=== PATIENT | female | born 1970 | race African-American/Black ===

== ENCOUNTER 2017-04-10 15:17 | Inpatient (IN) | payer OTHER ==
[~2017-04-10] VITALS: Ht 157.5 cm; Wt 62.1 kg
[~2017-04-10 15:17] MED LIST: ACAM333T7 PO; ASEN10TA9 SL; ASPI-630 PO; GABA-585 PO; HALO1TAB PO; LEVE10007 PO; LORA10TA3 PO; MIRT30TA3 PO; PANT20TA3 PO
[2017-04-10 17:00] VITALS: BP 115/88
[2017-04-10] MEDS ORDERED: NICOTINE POLACRILEX 2MG GUM PACKAGE of 12. BC PRN (17:30)
[2017-04-10] MEDS: IV NORMAL SALINE 1000ML BAG 1,000 ML IV SCH (17:30)
[2017-04-10] MEDS ORDERED: ZOLPIDEM 5 MG TABLET. PO PRN (17:30)
[2017-04-10] MEDS ORDERED: NICOTINE 21MG PATCH. TD PRN (17:30)
[2017-04-10] MEDS: LORazepam 1 MG TABLET PO SCH (18:05)
[2017-04-10] MEDS: MULTIVIT INFUSN,ADULT 4,VIT K 10 ML, THIAMINE 100 MG, FOLIC ACID 1 MG in IV NORMAL SALI... IV SCH (18:05)
[2017-04-10 19:53] VITALS: BP 97/67
[2017-04-10] MEDS: PANTOPRAZOLE 40 MG TABLET.DR. PO SCH (21:00)
--- NOTE | 2017-04-10 21:52 | PDOC1 ---
History and Physical Date of Admission Date of Admission DATE: 04/10/17 TIME: 21:46 Identification/Chief Complaint Chief Complaint has vomited blood Problems: Source Source: Chart review, Patient History of Present Illness History of Present Illness pt transferred from [facility], reported at ER to be vomiting a small amount of blood daily. ER physician reported daily vomiting of tablespoon size, Ms. Teague reports vomiting blood one time days ago, but she appears disheveled and confused, has asterixis and some nystagmus, slow to respond Past Medical History Cardiovascular: No pertinent hx GI: No pertinent hx Psych: Anxiety, Addictions Family History Family History: Family History Unknown Social History Smoke: 1 pack per day ALCOHOL: heavy Drugs: Other Current Medications Current Medications Current Medications Multivitamins 10 ml/Thiamine HCl 100 mg/Folic Acid 1 mg/Sodium Chloride 1,011.2 ml @ 100 mls/ hr DAILY IV Last administered on 04/10/17 18:05; Start at 18:00; Stop 04/16/17 at 17:59 Lorazepam (Ativan) 1 mg Q6HRS PO Last administered on 04/10/17 18:05; Start at 18:00 Lorazepam (Ativan) 2 mg PRN Q1HR PRN IV For CIWA 8-14; Start 04/10/17 at 17:30 Lorazepam (Ativan) 4 mg PRN Q1HR PRN IV For CIWA 15 or greater Last administered on 04/10/17 21:37; Start 04/10/17 at 17:30 Pantoprazole Sodium (Protonix) 40 mg BIDAC PO ; Start 04/10/17 at 21:00 Nicotine (Nicoderm Cq 21mg) 1 patch PRN DAILY PRN TD SMOKING CESSATION; Start 04/10/17 at 17:30 Nicotine Polacrilex (Nicorette Gum) 1 each PRN Q1HR PRN BC SMOKING CESSATION; Start 04/10/17 at 17:30 Zolpidem Tartrate (Ambien) 5 mg PRN QHS PRN PO INSOMNIA; Start 04/10/17 at 17: 30 Sodium Chloride 1,000 ml @ 100 mls/hr Q10H IV ; Start 04/10/17 at 17:30 Active Scripts Active Reported Saphris (Asenapine Maleate) 10 Mg Tab.subl 1 Tab SL QHS Mirtazapine 30 Mg Tablet 1 Tab PO QHS Haloperidol 1 Mg Tablet 1 Mg PO BID Acamprosate Calcium 333 Mg Tablet.dr 333 Mg PO TID Pantoprazole Sodium 20 Mg Tablet.dr 20 Mg PO DAILY Levetiracetam 1,000 Mg Tablet 1,000 Mg PO BID Gabapentin 100 Mg Capsule 1 Cap PO QID Loratadine 10 Mg Tablet 1 Tab PO DAILY Aspirin 81 Mg Tab.chew 1 Tab PO DAILY Allergies Allergies: Coded Allergies: No Known Drug Allergies (Unverified , 02/14/15) ROS Review of System difficult to obtain, pt slow to respond to most questions General: YES: Fatigue, Malaise PSYCHOLOGICAL ROS: YES: Anxiety, Irritablity HEENT: No: Heacaches, Visual Changes, Hearing change, Nasal congestion, Nasal discharge, Oral lesions, Sinus pain, Sore Throat, Epistaxis, Sneezing, Snoring, Tinnitus, Vertigo, Vocal changes, Other Respiratory: YES: Cough Cardiovascular: yes Lt Headedness, No Chest Pain, No Palpitations, No Orthopnea Gastrointestinal: Yes Nausea, Yes Abdominal Pain, Yes Other (small emesis, bloody) Genitourinary: No Dysuria, No Frequency, No Incontinence, No , No , No , No , No , No , No Musculoskeletal: Yes Joint Pain, Yes Joint Stiffness Neurological: Yes Tremors, Yes Weakness, No Behavorial Changes, No Bowel/Bladder ControlChng, No Confusion, No Dizziness, No Gait Disturbance, No Visual Changes, No Other Skin: Yes Dry Skin Physical Exam Physical Exam lethargic, some confused General: Alert, Cooperative, No acute distress, Other (oriented 3.4) HEENT: Atraumatic, EOMI Lungs: Clear to auscultation, Normal air movement Heart: no gallops, no murmurs Abdomen: Normal bowel sounds, Soft Extremities: No clubbing, No edema, Normal pulses Neuro: Normal tone, Sensation intact Psych/Mental Status: Mood NL, Other (malordorous, disheveled) Vitals Vitals Vital Signs Date Time Temp Pulse Resp B/P (MAP) Pulse Ox O2 Delivery O2 Flow Rate FiO2 04/10/17 19:53 98.2 88 18 97/67 (77) 93 Room Air 98.2 VTE Prophylaxis Ordered VTE Prophylaxis Devices: Yes VTE Pharmacological Prophylaxi: Contraindicated Assessment/Plan Assessment/Plan min. hematemesis, with min blood loss, no anemia reported at [facility] EtOH abuse, appears dependence, check urine for tox toxic encephalopathy, EtOH withdrawl prev. and treatment ordered tobaccoism, patch and gum orthostatic hypotension, give IV fluid, recheck, appears dry admit, GI consult PPI check labs in AM FRANK HALL MD Apr 10, 2017 21:52
[2017-04-10 23:06] VITALS: BP 97/73
[2017-04-11] VITALS (14 sets, daily range): BP systolic 98–171; BP diastolic 67–84
[2017-04-11] MEDS: IV NORMAL SALINE 1000ML BAG 1,000 ML IV SCH (04:30)
[2017-04-11] MEDS: LORazepam 1 MG TABLET PO SCH ×4 (06:00→17:30)
[2017-04-11 08:04] LABS: BASO # 0.1 x10^3/uL (0.0-0.2); BASO % 1 % (0-3); EOS % 4 % (0-3); HEMATOCRIT 31.1 % (36.0-47.0); HEMOGLOBIN 10.5 g/dL (12.0-15.5); LYMPH # 1.8 x10^3/uL (1.0-4.8); LYMPH % 28 % (24-48); MEAN CORPUSCULAR HEMOGLOBIN 34 pg (25-35); MEAN CORPUSCULAR HGB CONC 34 g/dL (31-37); MEAN CORPUSCULAR VOLUME 101 fL (79-100); MONO % 10 % (0-9); NEUT % 57 % (31-73); PLATELET COUNT 244 x10^3/uL (140-400); RED CELL DISTRIBUTION WIDTH 15.1 % (11.5-14.5); WHITE BLOOD COUNT 6.4 x10^3/uL (4.0-11.0)
[2017-04-11 08:05] LABS: BARBITURATES NEG (NEG); BENZODIAZEPINES POS (NEG); CANNABINOIDS POS (NEG); COCAINE NEG (NEG); METHADONE NEG (NEG); OPIATES NEG (NEG); PHENCYCLIDINE NEG (NEG)
[2017-04-11 08:15] LABS: ALBUMIN 2.4 g/dL (3.4-5.0); ALBUMIN/GLOBULIN RATIO 0.5 (1.0-1.7); CALCIUM 7.5 mg/dL (8.5-10.1); CREATININE 0.5 mg/dL (0.6-1.0); POTASSIUM 3.3 mmol/L (3.5-5.1); TOTAL BILIRUBIN 1.3 mg/dL (0.2-1.0); TOTAL PROTEIN 7.2 g/dL (6.4-8.2)
[2017-04-11] MEDS: MULTIVIT INFUSN,ADULT 4,VIT K 10 ML, THIAMINE 100 MG, FOLIC ACID 1 MG in IV NORMAL SALI... IV SCH (08:51)
[2017-04-11] MEDS: PANTOPRAZOLE 40 MG TABLET.DR. PO SCH ×2 (08:51→16:30)
--- NOTE | 2017-04-11 09:52 | PDOC2 ---
GI CONSULT Reason For Consult: GI Bleed, elevated LFTs HPI: HPI: 46 y/o female, poor historian, transferred from [facility]. Records indicate daily hematemesis x 2 weeks, she tells me "once a long time ago." Takes "a whole lot of pills," unsure if NSAIDs or anything for GERD. Denies abd pain, weight loss , diarrhea, constipation, hematochezia, melena. Drinks 1/2 pint whiskey most days, last two days ago. Want to leave to smoke. Labs at [facility]: Na+ 132, K+ 3, normal BUN/Cr, bili 1.4, AST 151, ALT 80, Alk Phos 244, Hgb 11, elevated RDW, plt WNL, INR 1.2. Recheck of labs here as below, Hgb 10.5. Some hypotension noted. PMH: PMH: bipolar, depression, alcoholism, seizures, ?hepatomegaly, tonsillectomy, lumpectomy, hysterectomy FH: Family History: No pertinent hx Social History: Smoke: 1 pack per day ALCOHOL: heavy (1/2 whiskey daily) Drugs: Marijuana ROS: GEN: Denies fevers, chills, sweats HEENT: Denies blurred vision, sore throat CV: Denies chest pain RESP: Denies shortness of air, cough GI: Per HPI : Denies hematuria, dysuria ENDO: Denies weight changes NEURO: Denies confusion, dizziness MSK: Denies weakness, joint pain/swelling SKIN: Denies jaundice, pruritus Vitals: Vitals: Vital Signs Date Time Temp Pulse Resp B/P (MAP) Pulse Ox O2 Delivery O2 Flow Rate FiO2 04/11/17 07:00 98.0 101 18 110/84 (93) 98 Room Air 98.0 Labs: Labs: Laboratory Tests Test 04/11/17 06:30 04/11/17 07:53 Urine Opiates Screen Neg (NEG) Urine Methadone Screen Neg (NEG) Urine Barbiturates Neg (NEG) Urine Phencyclidine Screen Neg (NEG) Urine Amphetamine/Methamphetamine Neg (NEG) Urine Benzodiazepines Screen Pos (NEG) Urine Cocaine Screen Neg (NEG) Urine Cannabinoids Screen Pos (NEG) Urine Ethyl Alcohol Neg (NEG) White Blood Count 6.4 x10^3/uL (4.0-11.0) Red Blood Count 3.10 x10^6/uL (3.50-5.40) Hemoglobin 10.5 g/dL (12.0-15.5) Hematocrit 31.1 % (36.0-47.0) Mean Corpuscular Volume 101 fL (79-100) Mean Corpuscular Hemoglobin 34 pg (25-35) Mean Corpuscular Hemoglobin Concent 34 g/dL (31-37) Red Cell Distribution Width 15.1 % (11.5-14.5) Platelet Count 244 x10^3/uL (140-400) Neutrophils (%) (Auto) 57 % (31-73) Lymphocytes (%) (Auto) 28 % (24-48) Monocytes (%) (Auto) 10 % (0-9) Eosinophils (%) (Auto) 4 % (0-3) Basophils (%) (Auto) 1 % (0-3) Neutrophils # (Auto) 3.7 x10^3uL (1.8-7.7) Lymphocytes # (Auto) 1.8 x10^3/uL (1.0-4.8) Monocytes # (Auto) 0.7 x10^3/uL (0.0-1.1) Eosinophils # (Auto) 0.3 x10^3/uL (0.0-0.7) Basophils # (Auto) 0.1 x10^3/uL (0.0-0.2) Sodium Level 133 mmol/L (136-145) Potassium Level 3.3 mmol/L (3.5-5.1) Chloride Level 99 mmol/L (98-107) Carbon Dioxide Level 22 mmol/L (21-32) Anion Gap 12 (6-14) Blood Urea Nitrogen 6 mg/dL (7-20) Creatinine 0.5 mg/dL (0.6-1.0) Estimated GFR (Cockcroft-Gault) 160.0 BUN/Creatinine Ratio 12 (6-20) Glucose Level 82 mg/dL (70-99) Calcium Level 7.5 mg/dL (8.5-10.1) Total Bilirubin 1.3 mg/dL (0.2-1.0) Aspartate Amino Transf (AST/SGOT) 122 U/L (15-37) Alanine Aminotransferase (ALT/SGPT) 65 U/L (14-59) Alkaline Phosphatase 214 U/L (46-116) Total Protein 7.2 g/dL (6.4-8.2) Albumin 2.4 g/dL (3.4-5.0) Albumin/Globulin Ratio 0.5 (1.0-1.7) Thyroid Stimulating Hormone (TSH) 1.741 uIU/mL (0.358-3.74) Allergies: Coded Allergies: No Known Drug Allergies (Unverified , 02/14/15) Medications: Current Medications Medications (Trade) Dose Ordered Sig/Marcela Route PRN Reason Start Time Stop Time Status Last Admin Dose Admin Multivitamins 10 ml/Thiamine HCl 100 mg/Folic Acid 1 mg/Sodium Chloride 1,011.2 ml @ 100 mls/ hr DAILY IV 04/10/17 18:00 04/16/17 17:59 04/11/17 08:51 Lorazepam (Ativan) 1 mg Q6HRS PO 04/10/17 18:00 04/10/17 18:05 Lorazepam (Ativan) 2 mg PRN Q1HR PRN IV For CIWA 8-14 04/10/17 17:30 04/11/17 06:25 Lorazepam (Ativan) 4 mg PRN Q1HR PRN IV For CIWA 15 or greater 04/10/17 17:30 04/10/17 21:37 Pantoprazole Sodium (Protonix) 40 mg BIDAC PO 04/10/17 21:00 04/11/17 08:51 Sodium Chloride 1,000 ml @ 100 mls/hr Q10H IV 04/10/17 17:30 04/11/17 04:30 Imaging: Imaging: - PE: GEN: NAD HEENT: +nystagmus LUNGS: CTAB anteriorly HEART: tachycardic ABD: NABS, S/ND/NT EXTREMITY: No edema SKIN: No rashes, no jaundice NEURO/PSYCH: A & O 3 A/P: A/P: Hematemesis Alcoholism Elevated LFTs -- NPO for EGD this afternoon. She is agreeable. Was given PPI PO this morning. LFTs likely 2/2 alcohol, will check Hep panel and iron profile. SONIA BRANDT Apr 11, 2017 09:52
[2017-04-11] MEDS ORDERED: IV RINGERS,LACTATED 1000ML 1,000 ML IV SCH (10:54)
[2017-04-11] MEDS: POTASSIUM CHLORIDE 10MEQ 100 ML IV SCH ×2 (12:40→20:02)
--- NOTE | 2017-04-11 13:46 | PDOC ---
PROGRESS NOTES Chief Complaint Chief Complaint min. hematemesis, with min blood loss anemia EtOH abuse, appears dependence, withdrawl treatment and precautions, toxic encephalopathy, EtOH withdrawl tobaccoism, patch and gum orthostatic hypotension, better with IV fluid, dehydrateed History of Present Illness History of Present Illness EGD today cont IV ativan and PO sched boyfriend, Kade at bedside, helpful with asking her to continue medical therapy. She would prefer to leave, but still has asterixis, tremor, nystagmus Vitals Vitals Vital Signs Date Time Temp Pulse Resp B/P (MAP) Pulse Ox O2 Delivery O2 Flow Rate FiO2 04/11/17 11:00 98.0 101 18 98/75 (83) 98 Room Air 98.0 Physical Exam Physical Exam neuro global deficit, asterixis, nystagmus, no focal General: Alert, Cooperative, No acute distress, Other (oriented 3.4) Heart: Regular rate, No murmurs Lungs: Clear Abdomen: Normal bowel sounds, Soft Extremities: No clubbing, No edema, Normal pulses Skin: No rashes Labs LABS Laboratory Tests Test 04/11/17 06:30 04/11/17 07:53 Urine Opiates Screen Neg (NEG) Urine Methadone Screen Neg (NEG) Urine Barbiturates Neg (NEG) Urine Phencyclidine Screen Neg (NEG) Urine Amphetamine/Methamphetamine Neg (NEG) Urine Benzodiazepines Screen Pos (NEG) Urine Cocaine Screen Neg (NEG) Urine Cannabinoids Screen Pos (NEG) Urine Ethyl Alcohol Neg (NEG) White Blood Count 6.4 x10^3/uL (4.0-11.0) Red Blood Count 3.10 x10^6/uL (3.50-5.40) Hemoglobin 10.5 g/dL (12.0-15.5) Hematocrit 31.1 % (36.0-47.0) Mean Corpuscular Volume 101 fL (79-100) Mean Corpuscular Hemoglobin 34 pg (25-35) Mean Corpuscular Hemoglobin Concent 34 g/dL (31-37) Red Cell Distribution Width 15.1 % (11.5-14.5) Platelet Count 244 x10^3/uL (140-400) Neutrophils (%) (Auto) 57 % (31-73) Lymphocytes (%) (Auto) 28 % (24-48) Monocytes (%) (Auto) 10 % (0-9) Eosinophils (%) (Auto) 4 % (0-3) Basophils (%) (Auto) 1 % (0-3) Neutrophils # (Auto) 3.7 x10^3uL (1.8-7.7) Lymphocytes # (Auto) 1.8 x10^3/uL (1.0-4.8) Monocytes # (Auto) 0.7 x10^3/uL (0.0-1.1) Eosinophils # (Auto) 0.3 x10^3/uL (0.0-0.7) Basophils # (Auto) 0.1 x10^3/uL (0.0-0.2) Sodium Level 133 mmol/L (136-145) Potassium Level 3.3 mmol/L (3.5-5.1) Chloride Level 99 mmol/L (98-107) Carbon Dioxide Level 22 mmol/L (21-32) Anion Gap 12 (6-14) Blood Urea Nitrogen 6 mg/dL (7-20) Creatinine 0.5 mg/dL (0.6-1.0) Estimated GFR (Cockcroft-Gault) 160.0 BUN/Creatinine Ratio 12 (6-20) Glucose Level 82 mg/dL (70-99) Calcium Level 7.5 mg/dL (8.5-10.1) Total Bilirubin 1.3 mg/dL (0.2-1.0) Aspartate Amino Transf (AST/SGOT) 122 U/L (15-37) Alanine Aminotransferase (ALT/SGPT) 65 U/L (14-59) Alkaline Phosphatase 214 U/L (46-116) Total Protein 7.2 g/dL (6.4-8.2) Albumin 2.4 g/dL (3.4-5.0) Albumin/Globulin Ratio 0.5 (1.0-1.7) Thyroid Stimulating Hormone (TSH) 1.741 uIU/mL (0.358-3.74) Review of Systems Review of Systems agitation, does not want to stay would not complete ROS Comment Review of Relevant I have reviewed the following items kai (where applicable) has been applied. Labs Laboratory Tests Test 04/11/17 06:30 04/11/17 07:53 Urine Opiates Screen Neg (NEG) Urine Methadone Screen Neg (NEG) Urine Barbiturates Neg (NEG) Urine Phencyclidine Screen Neg (NEG) Urine Amphetamine/Methamphetamine Neg (NEG) Urine Benzodiazepines Screen Pos (NEG) Urine Cocaine Screen Neg (NEG) Urine Cannabinoids Screen Pos (NEG) Urine Ethyl Alcohol Neg (NEG) White Blood Count 6.4 x10^3/uL (4.0-11.0) Red Blood Count 3.10 x10^6/uL (3.50-5.40) Hemoglobin 10.5 g/dL (12.0-15.5) Hematocrit 31.1 % (36.0-47.0) Mean Corpuscular Volume 101 fL (79-100) Mean Corpuscular Hemoglobin 34 pg (25-35) Mean Corpuscular Hemoglobin Concent 34 g/dL (31-37) Red Cell Distribution Width 15.1 % (11.5-14.5) Platelet Count 244 x10^3/uL (140-400) Neutrophils (%) (Auto) 57 % (31-73) Lymphocytes (%) (Auto) 28 % (24-48) Monocytes (%) (Auto) 10 % (0-9) Eosinophils (%) (Auto) 4 % (0-3) Basophils (%) (Auto) 1 % (0-3) Neutrophils # (Auto) 3.7 x10^3uL (1.8-7.7) Lymphocytes # (Auto) 1.8 x10^3/uL (1.0-4.8) Monocytes # (Auto) 0.7 x10^3/uL (0.0-1.1) Eosinophils # (Auto) 0.3 x10^3/uL (0.0-0.7) Basophils # (Auto) 0.1 x10^3/uL (0.0-0.2) Sodium Level 133 mmol/L (136-145) Potassium Level 3.3 mmol/L (3.5-5.1) Chloride Level 99 mmol/L (98-107) Carbon Dioxide Level 22 mmol/L (21-32) Anion Gap 12 (6-14) Blood Urea Nitrogen 6 mg/dL (7-20) Creatinine 0.5 mg/dL (0.6-1.0) Estimated GFR (Cockcroft-Gault) 160.0 BUN/Creatinine Ratio 12 (6-20) Glucose Level 82 mg/dL (70-99) Calcium Level 7.5 mg/dL (8.5-10.1) Total Bilirubin 1.3 mg/dL (0.2-1.0) Aspartate Amino Transf (AST/SGOT) 122 U/L (15-37) Alanine Aminotransferase (ALT/SGPT) 65 U/L (14-59) Alkaline Phosphatase 214 U/L (46-116) Total Protein 7.2 g/dL (6.4-8.2) Albumin 2.4 g/dL (3.4-5.0) Albumin/Globulin Ratio 0.5 (1.0-1.7) Thyroid Stimulating Hormone (TSH) 1.741 uIU/mL (0.358-3.74) Laboratory Tests Test 04/11/17 06:30 04/11/17 07:53 Urine Opiates Screen Neg (NEG) Urine Methadone Screen Neg (NEG) Urine Barbiturates Neg (NEG) Urine Phencyclidine Screen Neg (NEG) Urine Amphetamine/Methamphetamine Neg (NEG) Urine Benzodiazepines Screen Pos (NEG) Urine Cocaine Screen Neg (NEG) Urine Cannabinoids Screen Pos (NEG) Urine Ethyl Alcohol Neg (NEG) White Blood Count 6.4 x10^3/uL (4.0-11.0) Red Blood Count 3.10 x10^6/uL (3.50-5.40) Hemoglobin 10.5 g/dL (12.0-15.5) Hematocrit 31.1 % (36.0-47.0) Mean Corpuscular Volume 101 fL (79-100) Mean Corpuscular Hemoglobin 34 pg (25-35) Mean Corpuscular Hemoglobin Concent 34 g/dL (31-37) Red Cell Distribution Width 15.1 % (11.5-14.5) Platelet Count 244 x10^3/uL (140-400) Neutrophils (%) (Auto) 57 % (31-73) Lymphocytes (%) (Auto) 28 % (24-48) Monocytes (%) (Auto) 10 % (0-9) Eosinophils (%) (Auto) 4 % (0-3) Basophils (%) (Auto) 1 % (0-3) Neutrophils # (Auto) 3.7 x10^3uL (1.8-7.7) Lymphocytes # (Auto) 1.8 x10^3/uL (1.0-4.8) Monocytes # (Auto) 0.7 x10^3/uL (0.0-1.1) Eosinophils # (Auto) 0.3 x10^3/uL (0.0-0.7) Basophils # (Auto) 0.1 x10^3/uL (0.0-0.2) Sodium Level 133 mmol/L (136-145) Potassium Level 3.3 mmol/L (3.5-5.1) Chloride Level 99 mmol/L (98-107) Carbon Dioxide Level 22 mmol/L (21-32) Anion Gap 12 (6-14) Blood Urea Nitrogen 6 mg/dL (7-20) Creatinine 0.5 mg/dL (0.6-1.0) Estimated GFR (Cockcroft-Gault) 160.0 BUN/Creatinine Ratio 12 (6-20) Glucose Level 82 mg/dL (70-99) Calcium Level 7.5 mg/dL (8.5-10.1) Total Bilirubin 1.3 mg/dL (0.2-1.0) Aspartate Amino Transf (AST/SGOT) 122 U/L (15-37) Alanine Aminotransferase (ALT/SGPT) 65 U/L (14-59) Alkaline Phosphatase 214 U/L (46-116) Total Protein 7.2 g/dL (6.4-8.2) Albumin 2.4 g/dL (3.4-5.0) Albumin/Globulin Ratio 0.5 (1.0-1.7) Thyroid Stimulating Hormone (TSH) 1.741 uIU/mL (0.358-3.74) Medications Current Medications Multivitamins 10 ml/Thiamine HCl 100 mg/Folic Acid 1 mg/Sodium Chloride 1,011.2 ml @ 100 mls/ hr DAILY IV Last administered on 04/11/17 08:51; Start at 18:00; Stop 04/16/17 at 17:59 Lorazepam (Ativan) 1 mg Q6HRS PO Last administered on 04/10/17 18:05; Start at 18:00 Lorazepam (Ativan) 2 mg PRN Q1HR PRN IV For CIWA 8-14 Last administered on 04/11 06:25; Start 04/10/17 at 17:30 Lorazepam (Ativan) 4 mg PRN Q1HR PRN IV For CIWA 15 or greater Last administered on 04/11/17 11:12; Start 04/10/17 at 17:30 Pantoprazole Sodium (Protonix) 40 mg BIDAC PO Last administered on 04/11/17 08 :51; Start 04/10/17 at 21:00 Nicotine (Nicoderm Cq 21mg) 1 patch PRN DAILY PRN TD SMOKING CESSATION; Start 04/10/17 at 17:30 Nicotine Polacrilex (Nicorette Gum) 1 each PRN Q1HR PRN BC SMOKING CESSATION; Start 04/10/17 at 17:30 Zolpidem Tartrate (Ambien) 5 mg PRN QHS PRN PO INSOMNIA; Start 04/10/17 at 17: 30 Sodium Chloride 1,000 ml @ 100 mls/hr Q10H IV Last administered on 04/11/17 04:30; Start 04/10/17 at 17:30 Potassium Chloride 100 ml @ 100 mls/hr Q1H IV Last administered on 04/11/17 12:40; Start 04/11/17 at 11:00; Stop 04/11/17 at 12:59; Status DC Potassium Chloride (Klor-Con) 20 meq DAILYWBKFT PO ; Start 04/12/17 at 08:00 Ringer's Solution 1,000 ml @ 50 mls/hr Q20H IV ; Start 04/11/17 at 10:54; Stop 04/11/17 at 22:53 Active Scripts Active Reported Saphris (Asenapine Maleate) 10 Mg Tab.subl 1 Tab SL QHS Mirtazapine 30 Mg Tablet 1 Tab PO QHS Haloperidol 1 Mg Tablet 1 Mg PO BID Acamprosate Calcium 333 Mg Tablet.dr 333 Mg PO TID Pantoprazole Sodium 20 Mg Tablet.dr 20 Mg PO DAILY Levetiracetam 1,000 Mg Tablet 1,000 Mg PO BID Gabapentin 100 Mg Capsule 1 Cap PO QID Loratadine 10 Mg Tablet 1 Tab PO DAILY Aspirin 81 Mg Tab.chew 1 Tab PO DAILY Vitals/I & O Vital Sign - Last 24 Hours 04/10/17 04/10/17 04/10/17 04/10/17 17:00 17:00 19:53 20:00 Temp 98.3 98.2 98.3 98.2 Pulse 86 88 Resp 16 18 B/P (MAP) 115/88 (97) 97/67 (77) Pulse Ox 97 93 O2 Delivery Room Air Room Air Room Air Room Air 04/10/17 04/11/17 04/11/17 04/11/17 23:06 03:47 07:00 08:00 Temp 98.0 98.5 98.0 98.0 98.5 98.0 Pulse 93 107 101 Resp 18 20 18 B/P (MAP) 97/73 (81) 109/77 (88) 110/84 (93) Pulse Ox 92 92 98 O2 Delivery Room Air Room Air Room Air Room Air 04/11/17 11:00 Temp 98.0 98.0 Pulse 101 Resp 18 B/P (MAP) 98/75 (83) Pulse Ox 98 O2 Delivery Room Air Intake and Output 04/10/17 04/10/17 04/11/17 15:00 23:00 07:00 Intake Total 0 ml 1011.2 ml Output Total 300 ml Balance 0 ml 711.2 ml FRANK AHLL MD Apr 11, 2017 13:46
[2017-04-11 13:59] LABS: % SAT IRON 66 % (15-34); IRON,SERUM 76 ug/dL (50-170)
[2017-04-11] MEDS ORDERED: LIDOCAINE 2% PF Vial for OR 5 ML VIAL. ONE (14:45)
[2017-04-11] MEDS ORDERED: PROPOFOL 20 ML IV ONE (14:45)
--- NOTE | 2017-04-11 15:14 | PDOC4 ---
PROCEDURE Procedure EGD IND: "hematemesis" Meds: per anesthesia Findings: E--normal, no varices or visible reflux. G--few prepyloric erosions. No ulcer, varix, etc. D--Normal to second portion. Brittny. well. IMP: prepyloric erosions Would questions validity of history of hematemesis. Really hemoptysis? REC: Continue detox/withdrawal precautions. Observe for any bleeding. Thanks. IGNACIO HAJI MD Apr 11, 2017 15:13
[2017-04-11] MEDS ORDERED: LEVALBUTEROL 1.25 MG/0.5 ML NEBU. NEB ONE (15:30)
[2017-04-11] MEDS ORDERED: ALBUTEROL SULFATE 2.5 MG/3 ML NEBU. NEB ONE (15:45)
[2017-04-11 18:13] LABS: VITAMIN-B12 1507 pg/mL (247-911)
[2017-04-11 18:39] LABS: FOLATE > 24.00 ng/ml (3.2-20.0)
[2017-04-12 03:15] VITALS: BP 123/90
[2017-04-12] MEDS: IV NORMAL SALINE 1000ML BAG 1,000 ML IV SCH ×2 (05:03→08:44)
[2017-04-12] MEDS: LORazepam 1 MG TABLET PO SCH ×3 (06:00→12:00)
[2017-04-12 07:00] VITALS: BP 122/93
[2017-04-12] MEDS ORDERED: POTASSIUM CHLORIDE 20 MEQ TABLET.ER. PO SCH (08:00)
[2017-04-12] MEDS: MULTIVIT INFUSN,ADULT 4,VIT K 10 ML, THIAMINE 100 MG, FOLIC ACID 1 MG in IV NORMAL SALI... IV SCH (08:50)
[2017-04-12] MEDS: PANTOPRAZOLE 40 MG TABLET.DR. PO SCH (08:50)
[2017-04-12 10:52] VITALS: BP 118/90
--- NOTE | 2017-04-12 11:22 | PDOC ---
PROGRESS NOTES Chief Complaint Chief Complaint small amt .hematemesis, with min blood loss anemia - prepyloric erosions on EGD EtOH abuse, appears dependence, withdrawl treatment and precautions, toxic encephalopathy, EtOH withdrawl tobaccoism, patch and gum orthostatic hypotension, better with IV fluid, dehydrateed History of Present Illness History of Present Illness EGD OK abd pain better pt feels improved, would like to DC Vitals Vitals Vital Signs Date Time Temp Pulse Resp B/P (MAP) Pulse Ox O2 Delivery O2 Flow Rate FiO2 04/12/17 10:52 97.9 89 18 118/90 (99) 99 Room Air 97.9 04/11/17 20:00 2.0 Physical Exam Physical Exam neuro global deficit, asterixis, nystagmus, no focal General: Alert, Cooperative, No acute distress, Other (oriented 3.4) Heart: Regular rate, No murmurs Lungs: Clear Abdomen: Normal bowel sounds, Soft Extremities: No clubbing, No edema, Normal pulses Skin: No rashes Labs LABS Laboratory Tests Test 04/11/17 13:05 Iron Level 76 ug/dL (50-170) Total Iron Binding Capacity 116 ug/dL (250-450) Iron Saturation 66 % (15-34) Vitamin B12 Level 1507 pg/mL (247-911) Serum Folate > 24.00 ng/ml (3.2-20.0) Review of Systems Review of Systems no n/v/d some anxiety Assessment and Plan Assessmemt and Plan DC on PPI if labs OK, discussed EtOH abstinence. Problems: Comment Review of Relevant I have reviewed the following items kai (where applicable) has been applied. Labs Laboratory Tests Test 04/11/17 06:30 04/11/17 07:53 04/11/17 13:05 Urine Opiates Screen Neg (NEG) Urine Methadone Screen Neg (NEG) Urine Barbiturates Neg (NEG) Urine Phencyclidine Screen Neg (NEG) Urine Amphetamine/Methamphetamine Neg (NEG) Urine Benzodiazepines Screen Pos (NEG) Urine Cocaine Screen Neg (NEG) Urine Cannabinoids Screen Pos (NEG) Urine Ethyl Alcohol Neg (NEG) White Blood Count 6.4 x10^3/uL (4.0-11.0) Red Blood Count 3.10 x10^6/uL (3.50-5.40) Hemoglobin 10.5 g/dL (12.0-15.5) Hematocrit 31.1 % (36.0-47.0) Mean Corpuscular Volume 101 fL (79-100) Mean Corpuscular Hemoglobin 34 pg (25-35) Mean Corpuscular Hemoglobin Concent 34 g/dL (31-37) Red Cell Distribution Width 15.1 % (11.5-14.5) Platelet Count 244 x10^3/uL (140-400) Neutrophils (%) (Auto) 57 % (31-73) Lymphocytes (%) (Auto) 28 % (24-48) Monocytes (%) (Auto) 10 % (0-9) Eosinophils (%) (Auto) 4 % (0-3) Basophils (%) (Auto) 1 % (0-3) Neutrophils # (Auto) 3.7 x10^3uL (1.8-7.7) Lymphocytes # (Auto) 1.8 x10^3/uL (1.0-4.8) Monocytes # (Auto) 0.7 x10^3/uL (0.0-1.1) Eosinophils # (Auto) 0.3 x10^3/uL (0.0-0.7) Basophils # (Auto) 0.1 x10^3/uL (0.0-0.2) Sodium Level 133 mmol/L (136-145) Potassium Level 3.3 mmol/L (3.5-5.1) Chloride Level 99 mmol/L (98-107) Carbon Dioxide Level 22 mmol/L (21-32) Anion Gap 12 (6-14) Blood Urea Nitrogen 6 mg/dL (7-20) Creatinine 0.5 mg/dL (0.6-1.0) Estimated GFR (Cockcroft-Gault) 160.0 BUN/Creatinine Ratio 12 (6-20) Glucose Level 82 mg/dL (70-99) Calcium Level 7.5 mg/dL (8.5-10.1) Total Bilirubin 1.3 mg/dL (0.2-1.0) Aspartate Amino Transf (AST/SGOT) 122 U/L (15-37) Alanine Aminotransferase (ALT/SGPT) 65 U/L (14-59) Alkaline Phosphatase 214 U/L (46-116) Total Protein 7.2 g/dL (6.4-8.2) Albumin 2.4 g/dL (3.4-5.0) Albumin/Globulin Ratio 0.5 (1.0-1.7) Thyroid Stimulating Hormone (TSH) 1.741 uIU/mL (0.358-3.74) Cortisol AM Sample 11.8 ug/dL (6.2-19.4) Iron Level 76 ug/dL (50-170) Total Iron Binding Capacity 116 ug/dL (250-450) Iron Saturation 66 % (15-34) Vitamin B12 Level 1507 pg/mL (247-911) Serum Folate > 24.00 ng/ml (3.2-20.0) Laboratory Tests Test 04/11/17 13:05 Iron Level 76 ug/dL (50-170) Total Iron Binding Capacity 116 ug/dL (250-450) Iron Saturation 66 % (15-34) Vitamin B12 Level 1507 pg/mL (247-911) Serum Folate > 24.00 ng/ml (3.2-20.0) Medications Current Medications Multivitamins 10 ml/Thiamine HCl 100 mg/Folic Acid 1 mg/Sodium Chloride 1,011.2 ml @ 100 mls/ hr DAILY IV Last administered on 04/12/17 08:50; Start at 18:00; Stop 04/16/17 at 17:59 Lorazepam (Ativan) 1 mg Q6HRS PO Last administered on 04/10/17 18:05; Start at 18:00 Lorazepam (Ativan) 2 mg PRN Q1HR PRN IV For CIWA 8-14 Last administered on 04/11 06:25; Start 04/10/17 at 17:30 Lorazepam (Ativan) 4 mg PRN Q1HR PRN IV For CIWA 15 or greater Last administered on 04/12/17 05:04; Start 04/10/17 at 17:30 Pantoprazole Sodium (Protonix) 40 mg BIDAC PO Last administered on 04/12/17 08 :50; Start 04/10/17 at 21:00 Nicotine (Nicoderm Cq 21mg) 1 patch PRN DAILY PRN TD SMOKING CESSATION; Start 04/10/17 at 17:30 Nicotine Polacrilex (Nicorette Gum) 1 each PRN Q1HR PRN BC SMOKING CESSATION; Start 04/10/17 at 17:30 Zolpidem Tartrate (Ambien) 5 mg PRN QHS PRN PO INSOMNIA; Start 04/10/17 at 17: 30 Sodium Chloride 1,000 ml @ 100 mls/hr Q10H IV Last administered on 04/12/17 05:03; Start 04/10/17 at 17:30 Potassium Chloride 100 ml @ 100 mls/hr Q1H IV Last administered on 04/11/17 20:02; Start 04/11/17 at 11:00; Stop 04/11/17 at 12:59; Status DC Potassium Chloride (Klor-Con) 20 meq DAILYWBKFT PO Last administered on 08:49; Start 04/12/17 at 08:00 Ringer's Solution 1,000 ml @ 50 mls/hr Q20H IV ; Start 04/11/17 at 10:54; Stop 04/11/17 at 22:53; Status DC Propofol 20 ml @ As Directed STK-MED ONCE IV ; Start 04/11/17 at 14:45; Stop at 14:46; Status DC Lidocaine HCl (Lidocaine Pf 2% Vial) 5 ml STK-MED ONCE .ROUTE ; Start 04/11/17 at 14:45; Stop 04/11/17 at 14:46; Status DC Levalbuterol HCl (Xopenex) 1.25 mg 1X ONCE NEB Last administered on 04/11/17 15:41; Start 04/11/17 at 15:30; Stop 04/11/17 at 15:31; Status DC Albuterol Sulfate (Ventolin Neb Soln) 2.5 mg 1X ONCE NEB ; Start 04/11/17 at 15 :45; Stop 04/11/17 at 15:46; Status DC Active Scripts Active Reported Saphris (Asenapine Maleate) 10 Mg Tab.subl 1 Tab SL QHS Mirtazapine 30 Mg Tablet 1 Tab PO QHS Haloperidol 1 Mg Tablet 1 Mg PO BID Acamprosate Calcium 333 Mg Tablet.dr 333 Mg PO TID Pantoprazole Sodium 20 Mg Tablet.dr 20 Mg PO DAILY Levetiracetam 1,000 Mg Tablet 1,000 Mg PO BID Gabapentin 100 Mg Capsule 1 Cap PO QID Loratadine 10 Mg Tablet 1 Tab PO DAILY Aspirin 81 Mg Tab.chew 1 Tab PO DAILY Vitals/I & O Vital Sign - Last 24 Hours 04/11/17 04/11/17 04/11/17 04/11/17 14:15 14:18 15:00 15:18 Temp 97.7 98.1 97.6 97.7 98.1 97.6 Pulse 82 105 130 Resp 16 16 B/P (MAP) 103/69 (80) 152/113 Pulse Ox 90 95 O2 Delivery Room Air Room Air Nasal Cannula O2 Flow Rate 6 04/11/17 04/11/17 04/11/17 04/11/17 15:29 15:42 15:43 15:45 Pulse 112 102 88 Resp 24 16 B/P (MAP) 104/67 117/73 171/80 (110) Pulse Ox 97 95 O2 Delivery Nasal Cannula Room Air Nasal Cannula O2 Flow Rate 2 2.0 04/11/17 04/11/17 04/11/17 04/11/17 16:00 16:15 16:30 17:00 Pulse 103 97 96 98 B/P (MAP) 103/69 (80) 130/76 (94) 130/71 (90) 130/73 (92) 04/11/17 04/11/17 04/11/17 04/11/17 17:30 18:00 18:30 19:15 Temp 97.9 97.9 Pulse 99 88 87 98 Resp 16 B/P (MAP) 102/68 (79) 99/67 (78) 111/77 (88) 106/81 (89) Pulse Ox 94 O2 Delivery Room Air 04/11/17 04/11/17 04/12/17 04/12/17 20:00 23:15 03:15 07:00 Temp 98.2 98.6 96.3 98.2 98.6 96.3 Pulse 86 104 88 Resp 16 20 18 B/P (MAP) 103/76 (85) 123/90 (101) 122/93 (103) Pulse Ox 94 96 98 O2 Delivery Room Air Room Air Room Air Room Air O2 Flow Rate 2.0 04/12/17 10:52 Temp 97.9 97.9 Pulse 89 Resp 18 B/P (MAP) 118/90 (99) Pulse Ox 99 O2 Delivery Room Air Intake and Output 04/11/17 04/11/17 04/12/17 15:00 23:00 07:00 Intake Total 300 ml 700 ml 100 ml Output Total 50 ml Balance 300 ml 700 ml 50 ml FRANK HALL MD Apr 12, 2017 11:22
--- NOTE | 2017-04-12 12:20 | PDOC ---
G I PROGRESS NOTE Subjective No complaints. Would like to go home. Says will try to stop drinking. Physical Exam Lungs clear. RRR Abdomen soft, not tender nor distended. Review of Relevant I have reviewed the following items kai (where applicable) has been applied. Labs Laboratory Tests Test 04/11/17 06:30 04/11/17 07:53 04/11/17 13:05 Urine Opiates Screen Neg (NEG) Urine Methadone Screen Neg (NEG) Urine Barbiturates Neg (NEG) Urine Phencyclidine Screen Neg (NEG) Urine Amphetamine/Methamphetamine Neg (NEG) Urine Benzodiazepines Screen Pos (NEG) Urine Cocaine Screen Neg (NEG) Urine Cannabinoids Screen Pos (NEG) Urine Ethyl Alcohol Neg (NEG) White Blood Count 6.4 x10^3/uL (4.0-11.0) Red Blood Count 3.10 x10^6/uL (3.50-5.40) Hemoglobin 10.5 g/dL (12.0-15.5) Hematocrit 31.1 % (36.0-47.0) Mean Corpuscular Volume 101 fL (79-100) Mean Corpuscular Hemoglobin 34 pg (25-35) Mean Corpuscular Hemoglobin Concent 34 g/dL (31-37) Red Cell Distribution Width 15.1 % (11.5-14.5) Platelet Count 244 x10^3/uL (140-400) Neutrophils (%) (Auto) 57 % (31-73) Lymphocytes (%) (Auto) 28 % (24-48) Monocytes (%) (Auto) 10 % (0-9) Eosinophils (%) (Auto) 4 % (0-3) Basophils (%) (Auto) 1 % (0-3) Neutrophils # (Auto) 3.7 x10^3uL (1.8-7.7) Lymphocytes # (Auto) 1.8 x10^3/uL (1.0-4.8) Monocytes # (Auto) 0.7 x10^3/uL (0.0-1.1) Eosinophils # (Auto) 0.3 x10^3/uL (0.0-0.7) Basophils # (Auto) 0.1 x10^3/uL (0.0-0.2) Sodium Level 133 mmol/L (136-145) Potassium Level 3.3 mmol/L (3.5-5.1) Chloride Level 99 mmol/L (98-107) Carbon Dioxide Level 22 mmol/L (21-32) Anion Gap 12 (6-14) Blood Urea Nitrogen 6 mg/dL (7-20) Creatinine 0.5 mg/dL (0.6-1.0) Estimated GFR (Cockcroft-Gault) 160.0 BUN/Creatinine Ratio 12 (6-20) Glucose Level 82 mg/dL (70-99) Calcium Level 7.5 mg/dL (8.5-10.1) Total Bilirubin 1.3 mg/dL (0.2-1.0) Aspartate Amino Transf (AST/SGOT) 122 U/L (15-37) Alanine Aminotransferase (ALT/SGPT) 65 U/L (14-59) Alkaline Phosphatase 214 U/L (46-116) Total Protein 7.2 g/dL (6.4-8.2) Albumin 2.4 g/dL (3.4-5.0) Albumin/Globulin Ratio 0.5 (1.0-1.7) Thyroid Stimulating Hormone (TSH) 1.741 uIU/mL (0.358-3.74) Cortisol AM Sample 11.8 ug/dL (6.2-19.4) Iron Level 76 ug/dL (50-170) Total Iron Binding Capacity 116 ug/dL (250-450) Iron Saturation 66 % (15-34) Vitamin B12 Level 1507 pg/mL (247-911) Serum Folate > 24.00 ng/ml (3.2-20.0) Laboratory Tests Test 04/11/17 13:05 Iron Level 76 ug/dL (50-170) Total Iron Binding Capacity 116 ug/dL (250-450) Iron Saturation 66 % (15-34) Vitamin B12 Level 1507 pg/mL (247-911) Serum Folate > 24.00 ng/ml (3.2-20.0) Iron studies probably more c/w her alcohol use, anemia of chronic illness. Medications Current Medications Multivitamins 10 ml/Thiamine HCl 100 mg/Folic Acid 1 mg/Sodium Chloride 1,011.2 ml @ 100 mls/ hr DAILY IV Last administered on 04/12/17t 08:50; Start at 18:00; Stop 04/16/17 at 17:59 Lorazepam (Ativan) 1 mg Q6HRS PO Last administered on 04/10/17 18:05; Start at 18:00 Lorazepam (Ativan) 2 mg PRN Q1HR PRN IV For CIWA 8-14 Last administered on 04/11 06:25; Start 04/10/17 at 17:30 Lorazepam (Ativan) 4 mg PRN Q1HR PRN IV For CIWA 15 or greater Last administered on 04/12/17 05:04; Start 04/10/17 at 17:30 Pantoprazole Sodium (Protonix) 40 mg BIDAC PO Last administered on 04/12/17 08 :50; Start 04/10/17 at 21:00 Nicotine (Nicoderm Cq 21mg) 1 patch PRN DAILY PRN TD SMOKING CESSATION; Start 04/10/17 at 17:30 Nicotine Polacrilex (Nicorette Gum) 1 each PRN Q1HR PRN BC SMOKING CESSATION; Start 04/10/17 at 17:30 Zolpidem Tartrate (Ambien) 5 mg PRN QHS PRN PO INSOMNIA; Start 04/10/17 at 17: 30 Sodium Chloride 1,000 ml @ 100 mls/hr Q10H IV Last administered on 04/12/17 05:03; Start 04/10/17 at 17:30 Potassium Chloride 100 ml @ 100 mls/hr Q1H IV Last administered on 04/11/17 20:02; Start 04/11/17 at 11:00; Stop 04/11/17 at 12:59; Status DC Potassium Chloride (Klor-Con) 20 meq DAILYWBKFT PO Last administered on 08:49; Start 04/12/17 at 08:00 Ringer's Solution 1,000 ml @ 50 mls/hr Q20H IV ; Start 04/11/17 at 10:54; Stop 04/11/17 at 22:53; Status DC Propofol 20 ml @ As Directed STK-MED ONCE IV ; Start 04/11/17 at 14:45; Stop at 14:46; Status DC Lidocaine HCl (Lidocaine Pf 2% Vial) 5 ml STK-MED ONCE .ROUTE ; Start 04/11/17 at 14:45; Stop 04/11/17 at 14:46; Status DC Levalbuterol HCl (Xopenex) 1.25 mg 1X ONCE NEB Last administered on 04/11/17t 15:41; Start 04/11/17 at 15:30; Stop 04/11/17 at 15:31; Status DC Albuterol Sulfate (Ventolin Neb Soln) 2.5 mg 1X ONCE NEB ; Start 04/11/17 at 15 :45; Stop 04/11/17 at 15:46; Status DC Active Scripts Active Reported Saphris (Asenapine Maleate) 10 Mg Tab.subl 1 Tab SL QHS Mirtazapine 30 Mg Tablet 1 Tab PO QHS Haloperidol 1 Mg Tablet 1 Mg PO BID Acamprosate Calcium 333 Mg Tablet.dr 333 Mg PO TID Pantoprazole Sodium 20 Mg Tablet.dr 20 Mg PO DAILY Levetiracetam 1,000 Mg Tablet 1,000 Mg PO BID Gabapentin 100 Mg Capsule 1 Cap PO QID Loratadine 10 Mg Tablet 1 Tab PO DAILY Aspirin 81 Mg Tab.chew 1 Tab PO DAILY Vitals/I & O Vital Sign - Last 24 Hours 04/11/17 04/11/17 04/11/17 04/11/17 14:15 14:18 15:00 15:18 Temp 97.7 98.1 97.6 97.7 98.1 97.6 Pulse 82 105 130 Resp 16 16 B/P (MAP) 103/69 (80) 152/113 Pulse Ox 90 95 O2 Delivery Room Air Room Air Nasal Cannula O2 Flow Rate 6 04/11/17 04/11/17 04/11/17 04/11/17 15:29 15:42 15:43 15:45 Pulse 112 102 88 Resp 24 16 B/P (MAP) 104/67 117/73 171/80 (110) Pulse Ox 97 95 O2 Delivery Nasal Cannula Room Air Nasal Cannula O2 Flow Rate 2 2.0 04/11/17 04/11/17 04/11/17 04/11/17 16:00 16:15 16:30 17:00 Pulse 103 97 96 98 B/P (MAP) 103/69 (80) 130/76 (94) 130/71 (90) 130/73 (92) 04/11/17 04/11/17 04/11/17 04/11/17 17:30 18:00 18:30 19:15 Temp 97.9 97.9 Pulse 99 88 87 98 Resp 16 B/P (MAP) 102/68 (79) 99/67 (78) 111/77 (88) 106/81 (89) Pulse Ox 94 O2 Delivery Room Air 04/11/17 04/11/17 04/12/17 04/12/17 20:00 23:15 03:15 07:00 Temp 98.2 98.6 96.3 98.2 98.6 96.3 Pulse 86 104 88 Resp 16 20 18 B/P (MAP) 103/76 (85) 123/90 (101) 122/93 (103) Pulse Ox 94 96 98 O2 Delivery Room Air Room Air Room Air Room Air O2 Flow Rate 2.0 04/12/17 10:52 Temp 97.9 97.9 Pulse 89 Resp 18 B/P (MAP) 118/90 (99) Pulse Ox 99 O2 Delivery Room Air Intake and Output 04/11/17 04/11/17 04/12/17 15:00 23:00 07:00 Intake Total 300 ml 700 ml 100 ml Output Total 50 ml Balance 300 ml 700 ml 50 ml Assessment Alcoholism; cause of most of her issues. Minimal UGI pathology; would question validity of her history of "hematemesis", at least from UGI source. Plan of Care: Continue current Tx, Mgmt Plan of Care Note Have no objections to discharge. Mentioned trying AA to help stop alcohol. Probably doesn't need PPI at home. IGNACIO HAJI MD Apr 12, 2017 12:20
[2017-04-12 14:47] VITALS: BP 117/89
[2017-04-12 14:49] LABS: BASO # 0.1 x10^3/uL (0.0-0.2); BASO % 1 % (0-3); EOS % 6 % (0-3); HEMATOCRIT 31.4 % (36.0-47.0); LYMPH # 2.3 x10^3/uL (1.0-4.8); LYMPH % 28 % (24-48); MEAN CORPUSCULAR HEMOGLOBIN 34 pg (25-35); MEAN CORPUSCULAR HGB CONC 32 g/dL (31-37); MEAN CORPUSCULAR VOLUME 106 fL (79-100); MONO % 10 % (0-9); NEUT % 55 % (31-73); PLATELET COUNT 205 x10^3/uL (140-400); RED BLOOD COUNT 2.97 x10^6/uL (3.50-5.40); RED CELL DISTRIBUTION WIDTH 15.8 % (11.5-14.5); WHITE BLOOD COUNT 8.1 x10^3/uL (4.0-11.0)
[2017-04-12 15:01] LABS: INR 1.1 (0.8-1.1); PROTHROMBIN TIME PATIENT 13.9 SEC (11.7-14.0)
--- NOTE | 2017-04-12 15:06 | PDOC3 ---
Discharge Summary Visit Information Date of Admission: Apr 10, 2017 Date of Discharge: Apr 12, 2017 Admitting Diagnosis: hematemesis Final Diagnosis small amt .hematemesis, with min blood loss anemia - prepyloric erosions on EGD EtOH abuse, appears dependence, withdrawl treatment and precautions, toxic encephalopathy, EtOH withdrawl tobaccoism, patch and gum orthostatic hypotension, better with IV fluid, dehydrateed Brief Hospital Course Allergies Allergies Coded Allergies Type Severity Reaction Last Updated Verified No Known Drug Allergies 02/14/15 No Vital Signs Vital Signs Date Time Temp Pulse Resp B/P (MAP) Pulse Ox O2 Delivery O2 Flow Rate FiO2 04/12/17 14:47 98.3 95 18 117/89 (98) 98 Room Air 98.3 04/11/17 20:00 2.0 Lab Results Laboratory Tests Test 04/11/17 06:30 04/11/17 07:53 04/11/17 13:05 04/12/17 14:30 Urine Opiates Screen Neg (NEG) Urine Methadone Screen Neg (NEG) Urine Barbiturates Neg (NEG) Urine Phencyclidine Screen Neg (NEG) Urine Amphetamine/Methamphetamine Neg (NEG) Urine Benzodiazepines Screen Pos (NEG) Urine Cocaine Screen Neg (NEG) Urine Cannabinoids Screen Pos (NEG) Urine Ethyl Alcohol Neg (NEG) White Blood Count 6.4 x10^3/uL (4.0-11.0) 8.1 x10^3/uL (4.0-11.0) Red Blood Count 3.10 x10^6/uL (3.50-5.40) 2.97 x10^6/uL (3.50-5.40) Hemoglobin 10.5 g/dL (12.0-15.5) 10.0 g/dL (12.0-15.5) Hematocrit 31.1 % (36.0-47.0) 31.4 % (36.0-47.0) Mean Corpuscular Volume 101 fL (79-100) 106 fL (79-100) Mean Corpuscular Hemoglobin 34 pg (25-35) 34 pg (25-35) Mean Corpuscular Hemoglobin Concent 34 g/dL (31-37) 32 g/dL (31-37) Red Cell Distribution Width 15.1 % (11.5-14.5) 15.8 % (11.5-14.5) Platelet Count 244 x10^3/uL (140-400) 205 x10^3/uL (140-400) Neutrophils (%) (Auto) 57 % (31-73) 55 % (31-73) Lymphocytes (%) (Auto) 28 % (24-48) 28 % (24-48) Monocytes (%) (Auto) 10 % (0-9) 10 % (0-9) Eosinophils (%) (Auto) 4 % (0-3) 6 % (0-3) Basophils (%) (Auto) 1 % (0-3) 1 % (0-3) Neutrophils # (Auto) 3.7 x10^3uL (1.8-7.7) 4.5 x10^3uL (1.8-7.7) Lymphocytes # (Auto) 1.8 x10^3/uL (1.0-4.8) 2.3 x10^3/uL (1.0-4.8) Monocytes # (Auto) 0.7 x10^3/uL (0.0-1.1) 0.8 x10^3/uL (0.0-1.1) Eosinophils # (Auto) 0.3 x10^3/uL (0.0-0.7) 0.5 x10^3/uL (0.0-0.7) Basophils # (Auto) 0.1 x10^3/uL (0.0-0.2) 0.1 x10^3/uL (0.0-0.2) Sodium Level 133 mmol/L (136-145) Potassium Level 3.3 mmol/L (3.5-5.1) Chloride Level 99 mmol/L (98-107) Carbon Dioxide Level 22 mmol/L (21-32) Anion Gap 12 (6-14) Blood Urea Nitrogen 6 mg/dL (7-20) Creatinine 0.5 mg/dL (0.6-1.0) Estimated GFR (Cockcroft-Gault) 160.0 BUN/Creatinine Ratio 12 (6-20) Glucose Level 82 mg/dL (70-99) Calcium Level 7.5 mg/dL (8.5-10.1) Total Bilirubin 1.3 mg/dL (0.2-1.0) Aspartate Amino Transf (AST/SGOT) 122 U/L (15-37) Alanine Aminotransferase (ALT/SGPT) 65 U/L (14-59) Alkaline Phosphatase 214 U/L (46-116) Total Protein 7.2 g/dL (6.4-8.2) Albumin 2.4 g/dL (3.4-5.0) Albumin/Globulin Ratio 0.5 (1.0-1.7) Thyroid Stimulating Hormone (TSH) 1.741 uIU/mL (0.358-3.74) Cortisol AM Sample 11.8 ug/dL (6.2-19.4) Iron Level 76 ug/dL (50-170) Total Iron Binding Capacity 116 ug/dL (250-450) Iron Saturation 66 % (15-34) Vitamin B12 Level 1507 pg/mL (247-911) Serum Folate > 24.00 ng/ml (3.2-20.0) Laboratory Tests Test 04/12/17 14:30 White Blood Count 8.1 x10^3/uL (4.0-11.0) Red Blood Count 2.97 x10^6/uL (3.50-5.40) Hemoglobin 10.0 g/dL (12.0-15.5) Hematocrit 31.4 % (36.0-47.0) Mean Corpuscular Volume 106 fL (79-100) Mean Corpuscular Hemoglobin 34 pg (25-35) Mean Corpuscular Hemoglobin Concent 32 g/dL (31-37) Red Cell Distribution Width 15.8 % (11.5-14.5) Platelet Count 205 x10^3/uL (140-400) Neutrophils (%) (Auto) 55 % (31-73) Lymphocytes (%) (Auto) 28 % (24-48) Monocytes (%) (Auto) 10 % (0-9) Eosinophils (%) (Auto) 6 % (0-3) Basophils (%) (Auto) 1 % (0-3) Neutrophils # (Auto) 4.5 x10^3uL (1.8-7.7) Lymphocytes # (Auto) 2.3 x10^3/uL (1.0-4.8) Monocytes # (Auto) 0.8 x10^3/uL (0.0-1.1) Eosinophils # (Auto) 0.5 x10^3/uL (0.0-0.7) Basophils # (Auto) 0.1 x10^3/uL (0.0-0.2) Brief Hospital Course Ms. Teague is a 46 old admit with complaint of vomited blood. EtOH intox to detox, EGD OK, seen by Tracey Barker for withdrawl, at baseline at DC< EtOH abstinence strongly encouraged, discussed with her boyfriend, Timothy, will remove EtOH from the home Discharge Information Condition at Discharge: Improved Follow Up: Weeks Disposition/Orders: D/C to Home Scheduled Acamprosate Calcium (Acamprosate Calcium), 333 MG PO TID, (Reported) Asenapine Maleate (Saphris), 1 TAB SL QHS, (Reported) Aspirin (Aspirin), 1 TAB PO DAILY, (Reported) Gabapentin (Gabapentin), 1 CAP PO QID, (Reported) Haloperidol (Haloperidol), 1 MG PO BID, (Reported) Levetiracetam (Levetiracetam), 1,000 MG PO BID, (Reported) Loratadine (Loratadine), 1 TAB PO DAILY, (Reported) Mirtazapine (Mirtazapine), 1 TAB PO QHS, (Reported) Pantoprazole Sodium (Pantoprazole Sodium), 20 MG PO DAILY, (Reported) Patient Instructions Patient Instructions jak willard> 30 min FRANK HALL MD Apr 12, 2017 15:06
[2017-04-12 15:26] LABS: ALBUMIN 2.4 g/dL (3.4-5.0); ALBUMIN/GLOBULIN RATIO 0.6 (1.0-1.7); CALCIUM 7.1 mg/dL (8.5-10.1); CREATININE 0.5 mg/dL (0.6-1.0); POTASSIUM 3.7 mmol/L (3.5-5.1); TOTAL BILIRUBIN 0.9 mg/dL (0.2-1.0); TOTAL PROTEIN 6.6 g/dL (6.4-8.2)
[2017-04-13 14:26] LABS: HEP A IGM ABDY Negative (Negative)
== END 2017-04-12 16:22 | disposition home or self-care (01) | DRG 377 ==
LOC: 5 SOUTH 16:48
PROVIDERS: ADMIT Internal Medicine; ATTEND Internal Medicine
PROC: 0DJ08ZZ Inspection of Upper Intestinal Tract, Via Natural or Artificial Opening Endoscopic (ICD-10-PCS; principal; 2017-04-10)
DX: K92.0 Hematemesis (principal); G92 Toxic encephalopathy; K25.9 Gastric ulcer, unspecified as acute or chronic, without hemorrhage or perforation; D50.0 Iron deficiency anemia secondary to blood loss (chronic); F17.210 Nicotine dependence, cigarettes, uncomplicated; F32.9 Major depressive disorder, single episode, unspecified; H55.00 Unspecified nystagmus; R56.9 Unspecified convulsions; F10.229 Alcohol dependence with intoxication, unspecified; I95.1 Orthostatic hypotension; Z90.710 Acquired absence of both cervix and uterus
CPT/HCPCS: 36415; 80053; 80074; 82533; 82607; 82746; 83540; 83550; 84443; 85027; 85610; 94640; G0481; J2060; J2704; J3480; J7030